=== PATIENT | male | born 1995 ===

== ENCOUNTER 2018-11-25 02:19 | Emergency (ER) | payer MEDICAID ==
[~2018-11-25] VITALS: Ht 175.3 cm; Wt 80.0 kg
[2018-11-25 02:25] VITALS: BP 111/73
--- NOTE | 2018-11-25 02:55 | NUR ---
pt discharged to family for safe transportation home. pt verbalized understanding of discharge instuctions. pt takenm out by wheelchair
== END 2018-11-25 02:58 | disposition home or self-care (01) ==
LOC: ED 02:56
DX: F10.220 Alcohol dependence with intoxication, uncomplicated (principal)
CPT/HCPCS: 99283